=== PATIENT | male | born 1955 | race Hispanic/Latino ===

== ENCOUNTER 2016-09-10 00:07 | Emergency (ER) | payer BC ==
[2016-09-10 00:10] VITALS: BMI 32.1
[2016-09-10 00:18] VITALS: TEMP 98.8
--- NOTE | 2016-09-10 01:07 | ED PDOC ---
Arrival/HPI - General Chief Complaint: Trauma Time Seen by Provider: 09/10/16 00:55 Historian: Patient, Spouse ( ) - History of Present Illness Narrative History of Present Illness (Text): 09/10/16 00:59 Isaiah Taylor is a 61 year old male, with a history of seizures since December 2015, on Keppra, and hypertension, presents to the emergency department for evaluation following an unwitnessed seizure episode. Patient states he felt dizzy standing up after using the restroom and fell down to the ground. heard a thud and found the patient on the floor unconscious. He also sustained a small abrasion on tongue during the seizure. When EMS arrived patient was confused and in a post ictal state. This episode was patient's first episode since diagnosis in November, and has been compliant with medications. Denies fever , chills, headache, nausea, vomiting, diarrhea, urinary/bowel incontinence or any other complaints at this time. 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, pt currently taking abx - Pulmonary Hx Respiratory Disorders: No - Neurological Hx Neurological Disorder: No Hx Seizures: Yes - HEENT Hx HEENT Disorder: Yes (wears glasses) - Renal Hx Renal Disorder: No - Endocrine/Metabolic Hx Endocrine Disorders: No - Hematological/Oncological Hx Blood Disorders: No Hx Cancer: Yes (skin scalp/forehead/b/l side of face) Hx Chemotherapy: No (used topical cream) Hx Shingles: Yes (right side of face 2 yrs ago) Other/Comment: family can't recall what kind f skin ca he had - Integumentary Hx Dermatological Disorder: Yes (Skin CA) - Musculoskeletal/Rheumatological Hx Falls: No - Gastrointestinal Hx Gastrointestinal Disorders: No - Genitourinary/Gynecological Hx Prostate Problems: Yes (enlarge prostate) - Psychiatric Hx Psychophysiologic Disorder: No Hx Anxiety: No Hx Bipolar Disorder: No Hx Depression: No Hx Emotional Abuse: No Hx Hallucinations: No Hx Panic Disorder: No Hx Post Traumatic Stress Disorder: No Hx Psychosis: No Hx Physical Abuse: No Hx Schizophrenia: No Hx Sexual Abuse: No Hx Substance Use: No Other/Comment: 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, pt was in rehab x 2 the retreat in [place] 2 times, and attends aa meetings, pt has not had a drink in 9 months but 2 days ago went to store and bought 1 qt of vodka according to family bottle was almost empty and police brought him to er slept it off went home this morning had a seizure at home witnessed by - Past Surgical History Past Surgical History: No Previous - Surgical History Hx Appendectomy: Yes (10 yrs ago) Hx Cardiac Catheterization: Yes (12/20/14) Hx Orthopedic Surgery: Yes (lumbar laminectomy 25 yrs ago) Other/Comment: umbilical hernia repair, 15 yrs ago, r hydrocelectomy - Anesthesia Hx Anesthesia Reactions: No Hx Malignant Hyperthermia: No - Suicidal Assessment Feels Threatened In Home Enviroment: No Family/Social History - Physician Review Nursing Documentation Reviewed: Yes Family/Social History: No Known Family HX Smoking Status: Former Smoker Hx Alcohol Use: Yes (OCCASIONAL) Hx Substance Use: No Hx Substance Use Treatment: No Allergies/Home Meds Allergies/Adverse Reactions: Allergies No Known Allergies Allergy (Verified 12/13/15 11:44) Home Medications: Home Meds Medication Instructions Recorded Confirmed Nebivolol [Bystolic] 10 mg PO DAILY 03/17/13 04/14/16 Pantoprazole Sodium [Protonix] 40 mg PO DAILY 12/12/15 04/14/16 Sulfamethoxazole/Trimethoprim 2 tab PO BID 12/12/15 04/14/16 [Bactrim DS Tab] rifAMPin [Rifampin Cap] 1 cap PO BID 12/12/15 04/14/16 Amlodipine Besylate [Norvasc] 10 mg PO DAILY 12/13/15 04/14/16 Aspirin [Ecotrin] 81 mg PO DAILY 12/13/15 04/14/16 Review of Systems - Physician Review All systems were reviewed & negative as marked: Yes - Review of Systems Constitutional: Normal. absent: Fatigue, Fevers Respiratory: Normal. absent: SOB, Cough, Sputum Cardiovascular: Normal. absent: Chest Pain, Palpitations Neurological: Seizure. absent: Headache, Dizziness, Focal Weakness Psychiatric: Normal Physical Exam - Physical Exam Narrative Physical Exam (Text): Constitutional: No acute distress. Head: Normocephalic. Small abrasion to R cheek. Eyes: PERRL. EOMI. ENT: Moist mucous membranes. Abrasion on tip of tongue. Neck: Supple. No midline tenderness. Cardiovascular: Regular rate. Chest: No tenderness. Respiratory: Clear to auscultation bilaterally. GI: Soft. Nontender. Nondistended. Back: No CVA tenderness. Musculoskeletal: No tenderness or swelling of extremities. Skin: No rash. Neurologic: Alert, no focal deficit. Vital Signs Reviewed: Yes Vital Signs Temp Pulse Resp BP Pulse Ox 09/10/16 03:32 80 18 137/86 98 09/10/16 00:17 98.8 F 87 16 149/75 95 Temperature: Afebrile Blood Pressure: Normal Pulse: Regular Respiratory Rate: Normal Appearance: Positive for: Well-Appearing, Non-Toxic, Comfortable Pain Distress: None Mental Status: Positive for: Alert and Oriented X 3 Finger Stick Blood Glucose: 119 Medical Decision Making ED Course and Treatment: 09/10/16 01:09 Impression: A 61 year old male who presents to the emergency department following seizure episode. Plan: -- CT Head -- Labs -- Chest X-ray -- Urinalysis -- Reassess and disposition Progress Notes: 09/10/16 01:41 Chest X-ray interpreted by me: No acute infiltrates or consolidations. midline sternotomy wires. 09/10/16 01:48 CT Head results reviewed: FINDINGS: Brain: There is encephalomalacia in the right parietal lobe.Mild volume loss and white matter disease are identified. There is no acute infarct or edema. No hemorrhage. Ventricles: Unremarkable. No ventriculomegaly. Bones/joints: Unremarkable. No acute fracture. Soft tissues: Unremarkable. Sinuses: Unremarkable as visualized. No acute sinusitis. Mastoid air cells: Unremarkable as visualized. No mastoid effusion. IMPRESSION: No acute findings. Dictated and Authenticated by: Marcela Hargrove MD 09/10/16 02:58 Patient was offered admission to the hospital for further evaluation, but patient wants to sign out against medical advice. I advised the patient to stay the course of treatment, and informed him about the risks of leaving the hospital against medical advise. He verbalizes his understanding of the risks, and is adamant in his choice. Leaving Against Medical Advice (AMA): The patient is choosing to leave against medical advice. I have personally explained to the patient that choosing to do so may result in permanent bodily harm or . I have discussed at great length that without further evaluation and monitoring there may be unforeseen circumstances and/or deterioration causing permanent bodily harm or as a result of their choice. The patient is alert, oriented, and shows the mental capacity to make clear decisions regarding the patients health care at this time. The patient continues to wish to leave against medical advice. The patient has been advised that they should return to the emergency room immediately if they change their mind at any time, or if their condition begins to change or worsen in any way. - Lab Interpretations Lab Results: 09/10/16 01:05 09/10/16 01:05 Lab Results 09/10/16 01:05: Sodium 137, Potassium 4.2, Chloride 101, Carbon Dioxide 25, Anion Gap 15, BUN 28 H, Creatinine 1.4, Est GFR ( Amer) > 60, Est GFR ( Non-Af Amer) 52, Random Glucose 109, Calcium 9.4, Phosphorus 1.8 L, Magnesium 2.3 H, Total Bilirubin 0.5, AST 37, ALT 37, Alkaline Phosphatase 105, Total Creatine Kinase 598 H, CK-MB (CK-2) 5.5 H, CK-MB (CK-2) % 0.9 L, Total Protein 7.4, Albumin 4.4, Globulin 2.9, Albumin/Globulin Ratio 1.5 09/10/16 01:05: PT 10.6, INR 0.98, APTT 22.9 L 09/10/16 01:05: WBC 6.9 D, RBC 4.07, Hgb 12.7 L, Hct 36.3 L, MCV 89.2, MCH 31.2 , MCHC 35.0, RDW 13.0, Plt Count 157, MPV 10.1, Gran % 67.8, Lymph % (Auto) 21.5 L, [place] % (Auto) 5.4, Eos % (Auto) 4.7, Baso % (Auto) 0.6, Gran # 4.67, Lymph # 1.5, [place] # 0.4, Eos # 0.3, Baso # 0.04 - RAD Interpretation Radiology Orders: 09/10/16 00:56 HEAD W/O CONTRAST [CT] Stat CHEST PORTABLE [RAD] Stat - Scribe Statement The provider has reviewed the documentation as recorded by the [facility] Coto Provider Attestation: All medical record entries made by the Teodoraibnicky were at my direction and personally dictated by me. I have reviewed the chart and agree that the record accurately reflects my personal performance of the history, physical exam, medical decision making, and the department course for this patient. I have also personally directed, reviewed, and agree with the discharge instructions and disposition. Disposition/Present on Arrival - Present on Arrival Any Indicators Present on Arrival: No History of DVT/PE: No History of Uncontrolled Diabetes: No Urinary Catheter: No History of Decub. Ulcer: No History Surgical Site Infection Following: None - Disposition Have Diagnosis and Disposition been Completed?: Yes Diagnosis: Seizure Disposition: AGAINST MEDICAL ADVICE Disposition Time: 02:58 Patient Plan: Discharge Condition: STABLE Discharge Instructions (ExitCare): Epilepsy (ED), Against Medical Advice (ED)
[2016-09-10 01:13] LABS: ADD MANUAL DIFF? NO
[2016-09-10 01:15] LABS: BASO # 0.04 K/mm3 (0.0-2.0); BASO % 0.6 % (0.0-3.0); EOS # 0.3 (0.0-0.7); EOS % 4.7 % (1.5-5.0); GRAN # 4.67 (1.4-6.5); GRAN % 67.8 % (50.0-68.0); HEMATOCRIT 36.3 % (42.0-52.0); LYMPH # 1.5 (1.2-3.4); LYMPH % 21.5 % (22.0-35.0); MEAN CELL VOLUME 89.2 fL (80.0-105.0); MEAN CORPUSCULAR HEMOGLOBIN 31.2 pg (25.0-35.0); MEAN PLATELET VOLUME 10.1 fl (7.0-11.0); MONO # 0.4 (0.1-0.6); MONO % 5.4 % (1.0-6.0); PLATELET COUNT 157 10^3/uL (120.0-450.0); WHITE BLOOD COUNT 6.9 10^3/ul (4.5-11.0)
[2016-09-10 01:25] LABS: ALB/GLOB RATIO 1.5 (1.1-1.8); ALKALINE PHOSPHATASE 105 U/L (38-133); ALT/SGPT 37 U/L (7-56); AST/SGOT 37 U/L (15-59); BILIRUBIN,TOTAL 0.5 mg/dL (0.2-1.3); BLOOD UREA NITROGEN 28 mg/dL (7-21); CALCIUM 9.4 mg/dL (8.4-10.5); CARBON DIOXIDE 25 mmol/L (21-33); CHLORIDE 101 mmol/L (98-107); GFR AFRICAN-AMERICAN > 60; GLUCOSE,RANDOM 109 mg/dL (70-110); MAGNESIUM 2.3 mg/dL (1.7-2.2); PHOSPHOROUS 1.8 mg/dL (2.5-4.5); POTASSIUM 4.2 mmol/L (3.6-5.0); SODIUM 137 mmol/L (132-148); TOTAL PROTEIN 7.4 g/dL (5.8-8.3)
[2016-09-10 01:30] LABS: INR 0.98 (0.93-1.08); PARTIAL THROMBOPLASTIN TIME 22.9 Seconds (23.7-30.8)
[2016-09-10 03:33] VITALS: BP 137/86; PULSE 80; RESP 18; O2SAT 98
--- NOTE | 2016-09-10 07:25 | CT ---
PROCEDURE: CT HEAD WITHOUT CONTRAST. HISTORY: seizure, head trauma COMPARISON: 04/14/2016 TECHNIQUE: Axial computed tomography images were obtained through the head/brain without intravenous contrast. Radiation dose: Total exam DLP = 680.54 mGy-cm. This CT exam was performed using one or more of the following dose reduction techniques: Automated exposure control, adjustment of the mA and/or kV according to patient size, and/or use of iterative reconstruction technique. FINDINGS: HEMORRHAGE: No intracranial hemorrhage. BRAIN: No mass effect or edema. Focal encephalomalacia right high medial parietal lobe, unchanged. No evidence of acute infarct. VENTRICLES: Unremarkable. No hydrocephalus. CALVARIUM: Unremarkable. PARANASAL SINUSES: Unremarkable as visualized. No significant inflammatory changes. MASTOID AIR CELLS: Unremarkable as visualized. No inflammatory changes. OTHER FINDINGS: None. IMPRESSION: No intracranial hemorrhage. No intracranial mass or evidence of acute infarct. Old right high parietal encephalomalacia. Preliminary interpretation of this examination was reported by [employer] at 1:44 a.m. on 09/10/2016. There is concurrence of this report with the preliminary interpretation.
--- NOTE | 2016-09-10 08:50 | RAD ---
HISTORY: seizure COMPARISON: 04/14/2016 FINDINGS: LUNGS: No active pulmonary disease. PLEURA: No significant pleural effusion identified, no pneumothorax apparent. CARDIOVASCULAR: Normal. OSSEOUS STRUCTURES: No significant abnormalities. VISUALIZED UPPER ABDOMEN: Normal. OTHER FINDINGS: None. IMPRESSION: No active disease.
--- NOTE | 2016-09-10 11:54 | CARD ---
APPROVED REPORT EKG Measurement Heart [id number] <Conclusion> Normal sinus rhythm Possible Left atrial enlargement Right bundle branch block Possible inferior infarct, age undetermined STTW changes Leftward axis
== END 2016-09-10 03:37 | disposition left against medical advice (07) ==
LOC: ED 00:07
DX: R56.9 Unspecified convulsions (principal)

== ENCOUNTER 2017-04-19 00:16 | Observation (INO) | payer BC ==
--- NOTE | 2017-04-19 00:20 | ED PDOC ---
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 As per EMS< patient exhibited occasional twitching in arms and face but was alert and talking during those episodes. Patient without history of any recent head trauma or alcohol abuse, according to info obtained. On arrival to Emergency department, patient began experiencing twitching movements of extremities which progressed to full-blown tonic-clonic activity. Patient had an IV line immediately established, IV Ativan given, and patient placed non-rebreather mask. Time/Duration: Other (tonight) Symptom Onset: Sudden Symptom Course: Unchanged Activities at Onset: Light Context: Home Past Medical History - Provider Review Nursing Documentation Reviewed: Yes - Infectious Disease Hx of Infectious Diseases: None - Tetanus Immunization Tetanus Immunization: Unknown - Cardiac Hx Hypertension: Yes - Pulmonary Hx Respiratory Disorders: No - Neurological Hx Seizures: Yes - HEENT Hx HEENT Disorder: Yes (wears glasses) - Renal Hx Renal Disorder: No - Endocrine/Metabolic Hx Endocrine Disorders: No - Hematological/Oncological Hx Blood Disorders: No Hx Cancer: Yes (skin scalp/forehead/b/l side of face) Hx Chemotherapy: No (used topical cream) Hx Shingles: Yes (right side of face 2 yrs ago) Other/Comment: family can't recall what kind f skin ca he had - Integumentary Hx Dermatological Disorder: Yes (Skin CA) - Musculoskeletal/Rheumatological Hx Falls: No - Gastrointestinal Hx Gastrointestinal Disorders: No - Genitourinary/Gynecological Hx Prostate Problems: Yes (enlarge prostate) - Psychiatric Hx Psychophysiologic Disorder: No Hx Anxiety: No Hx Bipolar Disorder: No Hx Depression: No Hx Emotional Abuse: No Hx Hallucinations: No Hx Panic Disorder: No Hx Post Traumatic Stress Disorder: No Hx Psychosis: No Hx Physical Abuse: No Hx Schizophrenia: No Hx Sexual Abuse: No Hx Substance Use: No Other/Comment: 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, pt was in rehab x 2 the retreat in [place] 2 times, and attends aa meetings, pt has not had a drink in 9 months but 2 days ago went to store and bought 1 qt of vodka according to family bottle was almost empty and police brought him to er slept it off went home this morning had a seizure at home witnessed by - Past Surgical History Past Surgical History: No Previous - Surgical History Hx Appendectomy: Yes (10 yrs ago) Hx Cardiac Catheterization: Yes (12/20/14) Hx Orthopedic Surgery: Yes (lumbar laminectomy 25 yrs ago) Other/Comment: umbilical hernia repair, 15 yrs ago, r hydrocelectomy - Anesthesia Hx Anesthesia Reactions: No Hx Malignant Hyperthermia: No - Suicidal Assessment Feels Threatened In Home Enviroment: No Family/Social History - Physician Review Nursing Documentation Reviewed: Yes Family/Social History: Unknown Family HX Smoking Status: Former Smoker Hx Alcohol Use: Yes (OCCASIONAL) Hx Substance Use: No Hx Substance Use Treatment: No Allergies/Home Meds Allergies/Adverse Reactions: Allergies No Known Allergies Allergy (Verified 12/13/15 11:44) Home Medications: Home Meds Medication Instructions Recorded Confirmed RX: Amlodipine Besylate [Norvasc] 10 mg PO DAILY 12/13/15 04/19/17 Levetiracetam [Keppra] 2 tab PO BID 04/19/17 04/19/17 Nebivolol [Bystolic] 5 mg PO DAILY 04/19/17 04/19/17 Zonisamide [Zonegran] 100 mg PO HS 04/19/17 04/19/17 Review of Systems - Review of Systems Systems not reviewed;Unavailable: Altered Mental Status (s/p seizure) Neurological: Seizure Physical Exam Vital Signs Reviewed: Yes Vital Signs Temp Pulse Resp BP Pulse Ox 04/19/17 02:34 76 17 134/84 97 04/19/17 00:35 91 H 18 117/67 99 04/19/17 00:30 97.8 F 89 18 175/92 H 99 Temperature: Afebrile Blood Pressure: Hypertensive Pulse: Regular Respiratory Rate: Normal Pain Distress: None Mental Status: Positive for: other (Sedated post Ativan) - Systems Exam Head: Present: Atraumatic, Normocephalic Pupils: Present: PERRL Extroacular Muscles: Present: EOMI Conjunctiva: Present: Normal Ears: Present: Normal, NORMAL TM, Normal Canal. No: Erythema, TM Bulging Mouth: Present: Moist Mucous Membranes Pharnyx: Present: Normal. No: ERYTHEMA, EXUDATE, TONSILS ENLARGED, Peritonsilar Swelling, Uvular Deviation, Muffled/Hoarse Voice, Strider, Soft Palate/Uvular Edema Nose (External): Present: Atraumatic Nose (Internal): Present: Normal Inspection Neck: Present: Normal Range of Motion. No: Meningeal Signs, MIDLINE TENDERNESS , Paraspinal Tenderness Respiratory/Chest: Present: Clear to Auscultation, Good Air Exchange. No: Respiratory Distress, Accessory Muscle Use Cardiovascular: Present: Regular Rate and Rhythm, Normal S1, S2. No: Murmurs Abdomen: Present: Normal Bowel Sounds. No: Tenderness, Distention, Peritoneal Signs Upper Extremity: Present: Normal Inspection. No: Cyanosis, Edema Lower Extremity: Present: Normal Inspection. No: Edema Neurological: Present: CN II-XII Intact, Motor Func Grossly Intact, Normal Sensory Function, Other (Sedated, no focal neurological deficits) Skin: Present: Warm, Dry, Normal Color. No: Rashes Medical Decision Making ED Course and Treatment: 04/19/17 00:20 Impression: 62 year old male brought in for recurrent seizures today. Plan: -- CT Head w/o contrast -- EKG -- Labs, cardiac enzymes, alcohol level -- Ativan -- Reassess and disposition Prior Visits: Notes and results from previous visits were reviewed. On 09/10/16, pt was seen in the Emergency department s/p unwitnessed seizure and dizziness. Pt left against medical advice. Progress Notes: Reviewed EKG, NSR at 88 bpm. Incomplete RBBB. Non-specific ST/T wave changes. 04/19/17 02:52 Case discussed with medical apparatus model maker numerical control operator, who is aware and agrees with plan. 04/19/17 02:[address] Webb, covering for Dr. Mustafa, who is aware and agrees with plan. Pt will Telemetry observation for seizures. Requests Dr. Arellano on consult. 04/19/17 03:[address] Head, shows: Brain: Mild atrophy. No intracranial hemorrhage. No mass. Mild encephalomalacia within right parietal region. No definite edema. Ventricles: No hydrocephalus. Bones/joints: No acute fracture. Soft tissues: Unremarkable. Sinuses: No acute sinusitis. Mastoid air cells: Minimal fluid within RIGHT mastoid. Orbits: Unremarkable as visualized. IMPRESSION: 1. No definite acute intracranial abnormality. 2. Incidental/non-acute findings are described above. - Lab Interpretations Lab Results: 04/19/17 00:23 12 00:23 Lab Results 04/19/17 00:23: WBC 7.6, RBC 4.37, Hgb 13.9 L, Hct 40.7 L, MCV 93.1, MCH 31.8, MCHC 34.2, RDW 13.2, Plt Count 171, MPV 10.9 12 00:23: Alcohol, Quantitative < 10 04/19/17 00:23: Sodium 141, Potassium 4.7, Chloride 107, Carbon Dioxide 19 L, Anion Gap 20, BUN 21, Creatinine 1.2, Est GFR ( Amer) > 60, Est GFR (Non- Af Amer) > 60, Random Glucose 121 H, Calcium 9.6, Phosphorus 3.1, Magnesium 2.1 , Total Bilirubin 0.4, AST 37, ALT 35, Alkaline Phosphatase 75, Lactate Dehydrogenase 257 L, Total Creatine Kinase 254 H, CK-MB (CK-2) 4.2 H, CK-MB (CK- 2) % Cancelled, Troponin I < 0.01, Total Protein 7.6, Albumin 4.9 H, Globulin 2.7, Albumin/Globulin Ratio 1.8 04/19/17 00:23: PT 10.6, INR 0.97, APTT 26.9 I have reviewed the lab results: Yes - RAD Interpretation Radiology Orders: 04/19/17 00:37 HEAD W/O CONTRAST [CT] Stat Mold Presser: Radiologist - EKG Interpretation Interpreted by ED Physician: Yes Type: 12 lead EKG - Medication Orders Current Medication Orders: Discontinued Medications Lorazepam (Ativan) 2 mg IVP ONCE ONE Stop: 04/19/17 00:21 Last Admin: 04/19/17 00:20 Dose: 2 mg IVP Administration Document 04/19/17 00:20 YP (Rec: 04/19/17 00:40 [id number] [id number]) Charges for Administration # of IVP Administrations 1 - Scribe Statement The provider has reviewed the documentation as recorded by the Brook Abrams Provider Scribe Attestation: All medical record entries made by the Scribe were at my direction and personally dictated by me. I have reviewed the chart and agree that the record accurately reflects my personal performance of the history, physical exam, medical decision making, and the department course for this patient. I have also personally directed, reviewed, and agree with the discharge instructions and disposition. Disposition/Present on Arrival - Present on Arrival Any Indicators Present on Arrival: No History of DVT/PE: No History of Uncontrolled Diabetes: No Urinary Catheter: No History of Decub. Ulcer: No History Surgical Site Infection Following: None - Disposition Have Diagnosis and Disposition been Completed?: Yes Diagnosis: Breakthrough seizure, Seizure disorder Disposition: HOSPITALIZED Disposition Time: 03:02 Patient Plan: Observation Patient Problems: Current Active Problems Problem Status Onset Breakthrough seizure Acute Seizure disorder Acute Condition: STABLE
[2017-04-19 00:27] VITALS: BMI 32.5
[2017-04-19 00:57] LABS: HEMATOCRIT 40.7 % (42.0-52.0); INR 0.97 (0.93-1.08); MEAN CELL VOLUME 93.1 fl (80.0-105.0); MEAN CORPUSCULAR HEMOGLOBIN 31.8 pg (25.0-35.0); MEAN CORPUSCULAR HGB CONC 34.2 g/dl (31.0-37.0); MEAN PLATELET VOLUME 10.9 fl (7.0-11.0); PARTIAL THROMBOPLASTIN TIME 26.9 Seconds (25.1-36.5); RED CELL DISTRIBUTION WIDTH 13.2 % (11.5-14.5); WHITE BLOOD COUNT 7.6 10^3/ul (4.5-11.0)
[2017-04-19 01:02] LABS: ALKALINE PHOSPHATASE 75 U/L (38-126); ALT/SGPT 35 U/L (7-56); AST/SGOT 37 U/L (17-59); BILIRUBIN,TOTAL 0.4 mg/dL (0.2-1.3); BLOOD UREA NITROGEN 21 mg/dL (7-21); CALCIUM 9.6 mg/dL (8.4-10.5); CARBON DIOXIDE 19 mmol/L (21-33); CHLORIDE 107 mmol/L (98-107); GFR AFRICAN-AMERICAN > 60; GLUCOSE,RANDOM 121 mg/dL (70-110); POTASSIUM 4.7 mmol/L (3.6-5.0); SODIUM 141 mmol/L (132-148); TOTAL PROTEIN 7.6 g/dL (5.8-8.3)
[2017-04-19 01:14] LABS: TROPONIN I < 0.01 ng/mL
[2017-04-19 01:15] LABS: ALB/GLOB RATIO 1.8 (1.1-1.8)
--- NOTE | 2017-04-19 03:13 | CT ---
EXAM: CT Head Without Intravenous Contrast CLINICAL HISTORY: 62 years old, male; Signs and symptoms; Syncope and collapse; Additional info: Seizure TECHNIQUE: Axial computed tomography images of the head/brain without intravenous contrast. All CT scans at this facility use one or more dose reduction techniques, viz.: automated exposure control; ma/kV adjustment per patient size (including targeted exams where dose is matched to indication; i.e. head); or iterative reconstruction technique. COMPARISON: CT - HEAD W/O CONTRAST 2016-09-10 01:24 FINDINGS: Brain: Mild atrophy. No intracranial hemorrhage. No mass. Mild encephalomalacia within right parietal region. No definite edema. Ventricles: No hydrocephalus. Bones/joints: No acute fracture. Soft tissues: Unremarkable. Sinuses: No acute sinusitis. Mastoid air cells: Minimal fluid within RIGHT mastoid. Orbits: Unremarkable as visualized. IMPRESSION: 1. No definite acute intracranial abnormality. 2. Incidental/non-acute findings are described above.
[2017-04-19 03:18] LABS: MAGNESIUM 2.1 mg/dL (1.7-2.2); PHOSPHOROUS 3.1 mg/dL (2.5-4.5)
[2017-04-19] MEDS ORDERED: Sodium Chloride 0.9% 1,000 ML IV SCH (04:15)
--- NOTE | 2017-04-19 04:36 | CP.PCM.HP ---
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 Patient has history of a seizure disorder for which he takes multiple antiseizure medications. is at beside, contributing to history. She reports that patient had collapsed to the ground while getting up from a chair, landing on all four extremities. He proceeded to crawl around with difficulty standing up, and was acting strange according to his . En route to the ER, EMS noted twitching movements of LUE and left face. In the ER, this progressed to generalized tonic clonic seizure which abated with Ativan 2mg IV. Patient denies any chest pain, palpitations, SOB, abdominal pain, nausea, vomiting, constipation, dysuria, hematuria, fever, chills. denies any recent mood/ memory/sleep changes. He does endorse a new antiseizure medication started about 6 weeks ago, after having a reaction to the medication he was on previously. He also reports 2 episodes of diarrhea 2 days ago. He denies trauma , recent alcohol use, recent drug use. Remainder of 12 point ROS negative. PMH: As above PSH: Aortic porcine valve replacement 08/2015, appendectomy, umbilical hernia repair, lumbar laminectomy and fusion Soc: Denies tobacco. Prior history of alcohol abuse, last drink was December 2015. Denies illicits. All: NKDA PMD: [place] Neuro: Anselmi Present on Admission - Present on Admission Any Indicators Present on Admission: No Past Patient History - Infectious Disease Hx of Infectious Diseases: None - Tetanus Immunizations Tetanus Immunization: Unknown - Past Social History Smoking Status: Former Smoker - CARDIAC Hx Hypertension: Yes - PULMONARY Hx Respiratory Disorders: No - NEUROLOGICAL Hx Seizures: Yes - HEENT Hx HEENT Problems: Yes (wears glasses) - RENAL Hx Chronic Kidney Disease: No - ENDOCRINE/METABOLIC Hx Endocrine Disorders: No - HEMATOLOGICAL/ONCOLOGICAL Hx Blood Disorders: No Hx Cancer: Yes (skin scalp/forehead/b/l side of face) Hx Chemotherapy: No (used topical cream) Hx Shingles: Yes (right side of face 2 yrs ago) Other/Comment: family can't recall what kind f skin ca he had - INTEGUMENTARY Hx Dermatological Problems: Yes (Skin CA) - MUSCULOSKELETAL/RHEUMATOLOGICAL Hx Falls: No - GASTROINTESTINAL Hx Gastrointestinal Disorders: No - GENITOURINARY/GYNECOLOGICAL Hx Prostate Problems: Yes (enlarge prostate) - PSYCHIATRIC Hx Psychophysiologic Disorder: No Hx Anxiety: No Hx Bipolar Disorder: No Hx Depression: No Hx Emotional Abuse: No Hx Hallucinations: No Hx Panic Symptoms: No Hx Post Traumatic Stress Disorder: No Hx Psychosis: No Hx Physical Abuse: No Hx Schizophrenia: No Hx Sexual Abuse: No Hx Substance Use: No Other/Comment: 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, pt was in rehab x 2 the retreat [place] 2 times, and attends aa meetings, pt has not had a drink in 9 months but 2 days ago went to store and bought 1 qt of vodka according to family bottle was almost empty and police brought him to er slept it off went home this morning had a seizure at home witnessed by - SURGICAL HISTORY Hx Appendectomy: Yes (10 yrs ago) Hx Cardiac Catheterization: Yes (12/20/14) Hx Orthopedic Surgery: Yes (lumbar laminectomy 25 yrs ago) Other/Comment: umbilical hernia repair, 15 yrs ago, r hydrocelectomy - ANESTHESIA Hx Anesthesia Reactions: No Hx Malignant Hyperthermia: No Meds Allergies/Adverse Reactions: Allergies Allergy/AdvReac Type Severity Reaction Status Date / Time No Known Allergies Allergy Verified 12/13/15 11:44 Physical Exam - Constitutional Appears: Non-toxic, No Acute Distress - Head Exam Head Exam: ATRAUMATIC, NORMOCEPHALIC - Eye Exam Eye Exam: EOMI, Normal appearance, PERRL. absent: Nystagmus - ENT Exam ENT Exam: Mucous Membranes Moist - Neck Exam Neck exam: Positive for: Full Rom, Normal Inspection - Respiratory Exam Respiratory Exam: Clear to Auscultation Bilateral, NORMAL BREATHING PATTERN - Cardiovascular Exam Cardiovascular Exam: RRR, +S1, +S2 - GI/Abdominal Exam GI & Abdominal Exam: Normal Bowel Sounds, Soft. absent: Firm, Guarding, Rigid, Tenderness - Extremities Exam Extremities exam: Positive for: normal capillary refill, pedal pulses present. Negative for: calf tenderness, pedal edema - Neurological Exam Neurological exam: Alert, CN II-XII Intact, Oriented x3 Additional comments: 5/5 strength in b/l UE 5/5 Strength in RLE - 5/5 strength in LLE, though slightly weaker than right, or apparently inattentive to that extremity until prompted multiple times - Psychiatric Exam Psychiatric exam: Normal Affect, Normal Mood - Skin Skin Exam: Dry, Intact, Normal Color, Warm Results - Vital Signs Recent Vital Signs: Last Vital Signs Temp 97.8 F 04/19/17 00:30 Pulse 80 04/19/17 03:42 Resp 14 04/19/17 03:42 BP 135/72 04/19/17 03:42 Pulse Ox 98 04/19/17 03:42 - Labs Result Diagrams: 04/19/17 00:23 04/19/17 00:23 Assessment & Plan - Assessment and Plan (Free Text) Assessment: 62 yo M with PMH of MSSA endocarditis, 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 Patient had witnessed generalized tonic clonic seizure in the ER which abated with Ativan 2mg IV. Plan Seizures - Patient has history of seizure disorder and prior history of alcohol abuse; reports compliance with his medications and no recent alcohol consumption - CT head w/o contrast negative for any acute intracranial abnormalities - Resume home antiseizure medications - Start Ativan 2mg IV Q2H PRN for seizure like activity - Ordered UA and CXR to r/o infectious etiology provoking seizure; Utox to r/o illicit drug use - Ordered keppra level, TSH - Seizure and fall precautions - Requested neuro consult; appreciate recs. Patient sees Dr. Arellano on outpatient basis h/o Alcohol abuse - Patient denies any recent alcohol consumption, and serum alcohol level low - Start CIWA protocol - Start PO thiamine - Continue to monitor for withdrawal symptoms Elevated CPK - Patient predisposed to rhabdomyolysis in setting of seizure and elevated CPK - Start IVF hydration h/o HTN - Resume home meds GI/DVT Ppx - Pepcid and SCDs Case discussed and reviewed with attending
[2017-04-19 06:26] VITALS: O2SAT 96
[2017-04-19 07:48] LABS: BASO # 0.01 K/mm3 (0.0-2.0); BASO % 0.1 % (0.0-3.0); EOS % 0.4 % (1.5-5.0); GRAN # 5.73 (1.4-6.5); GRAN % 74.1 % (50.0-68.0); HEMATOCRIT 37.3 % (42.0-52.0); LYMPH # 1.5 (1.2-3.4); LYMPH % 18.8 % (22.0-35.0); MEAN CELL VOLUME 90.8 fl (80.0-105.0); MEAN CORPUSCULAR HEMOGLOBIN 31.1 pg (25.0-35.0); MEAN CORPUSCULAR HGB CONC 34.3 g/dl (31.0-37.0); MEAN PLATELET VOLUME 10.1 fl (7.0-11.0); MONO # 0.5 (0.1-0.6); MONO % 6.6 % (1.0-6.0); RED CELL DISTRIBUTION WIDTH 13.2 % (11.5-14.5); WHITE BLOOD COUNT 7.7 10^3/ul (4.5-11.0)
[2017-04-19 08:00] LABS: ALB/GLOB RATIO 1.8 (1.1-1.8); ALKALINE PHOSPHATASE 76 U/L (38-126); ALT/SGPT 34 U/L (7-56); AST/SGOT 33 U/L (17-59); BILIRUBIN,TOTAL 0.6 mg/dL (0.2-1.3); BLOOD UREA NITROGEN 19 mg/dL (7-21); CARBON DIOXIDE 22 mmol/L (21-33); CHLORIDE 107 mmol/L (98-107); GFR AFRICAN-AMERICAN > 60; GLUCOSE,RANDOM 109 mg/dL (70-110); MAGNESIUM 2.1 mg/dL (1.7-2.2); PHOSPHOROUS 3.3 mg/dL (2.5-4.5); POTASSIUM 3.9 mmol/L (3.6-5.0); SODIUM 137 mmol/L (132-148); TOTAL PROTEIN 6.5 g/dL (5.8-8.3)
[2017-04-19] MEDS ORDERED: NEBIVOLOL 5 MG PO SCH (10:00)
[2017-04-19 11:38] LABS: PH,URINE 6.5 (4.7-8.0); URINE BILIRUBIN NEGATIVE (NEGATIVE); URINE BLOOD NEGATIVE (NEGATIVE); URINE GLUCOSE (UA) NEGATIVE (NEGATIVE); URINE KETONE NEGATIVE (NEGATIVE); URINE LEUKOCYTE ESTERASE NEGATIVE Leu/uL (NEGATIVE); URINE PROTEIN NEGATIVE mg/dL (<30 mg/dL); URINE UROBILINOGEN 0.2 E.U./dL (<1 E.U./dL)
[2017-04-19 11:43] LABS: URINE APPEARANCE CLEAR (CLEAR); URINE COLOR YELLOW (YELLOW)
--- NOTE | 2017-04-19 11:57 | CARD ---
APPROVED REPORT EKG Measurement Heart [id number] <Conclusion> Normal sinus rhythm RBBB Possible IMI, old NSSTW changes Prolonged QTc No change
[2017-04-19] MEDS ORDERED: Gadodiamide 287 MG/ML VIAL (20ML) IV ONE (13:10)
[2017-04-19 13:21] VITALS: BP 134/90; RESP 19; TEMP 98.1
--- NOTE | 2017-04-19 14:11 | MRI ---
PROCEDURE: MRI BRAIN WITH AND WITHOUT CONTRAST HISTORY: seizure disorder COMPARISON: Comparison is made with previous MRI dated 12/14/2015 TECHNIQUE: Multiplanar, multisequence MR images of the brain were obtained with and without intravenous contrast enhancement. Brain mL of Omniscan was injected intravenously. FINDINGS: HEMORRHAGE: No evidence of acute hemorrhage. Focal susceptibility artifact is again noted at the right parietal lobe suggestive of chronic hemorrhage. DWI: No evidence of an acute or early subacute infarction. BRAIN PARENCHYMA: Focal encephalomalacia at the right parietal lobe associated with susceptibility artifact again noted suggestive of hemorrhagic infarction. No evidence of new mass lesion in the brain. No atrophy or chronic microvascular ischemic changes. ENHANCEMENT: No abnormal intracranial enhancement. VENTRICLES: Unremarkable. No hydrocephalus. CRANIUM: Unremarkable. ORBITS: Grossly unremarkable. PARANASAL SINUSES/MASTOIDS: Mild effusion noted at the right mastoid. VASCULAR SYSTEM: Skull base flow voids intact. OTHER FINDINGS: None . IMPRESSION: No evidence of acute pathology. No evidence of enhancing mass lesion mass effect or midline shift. Re- demonstrated is chronic hemorrhage/ focal hemorrhagic infarction at the right parietal lobe. No significant interval change noted since the previous study.
[2017-04-19 15:16] VITALS: PULSE 65
[2017-04-19] MEDS ORDERED: Influenza Vaccine 60 mcg/0.5 mL SYR (4YR UP) IM ONE (15:36)
[2017-04-19] MEDS ORDERED: Pneumococcal 23-Valent Vaccine IM ONE (15:36)
--- NOTE | 2017-04-19 17:16 | RAD ---
HISTORY: COMPARISON: 09/10/2016 TECHNIQUE: Chest PA and lateral FINDINGS: LINES AND TUBES: The lungs are hyperinflated and there is peribronchial thickening with chronic changes in both lungs. No focal consolidation. LUNG AND PLEURA: The lungs are well inflated and clear. HEART AND MEDIASTINUM: The heart is not enlarged. Status post median sternotomy. The hilar and mediastinal contours are within normal limits. SKELETAL STRUCTURES: The bony structures are within normal limits for the patient's age. VISUALIZED UPPER ABDOMEN: Normal. OTHER FINDINGS: None. IMPRESSION: No active pulmonary disease. COPD.
--- NOTE | 2017-04-19 17:23 | CP.PCM.DIS ---
Provider - Provider Date of Admission: 04/19/17 02:58 Attending physician: Graeme Mustafa MD Time Spent in preparation of Discharge (in minutes): 40 Diagnosis - Discharge Diagnosis (1) Breakthrough seizure Status: Acute (2) Seizure disorder Status: Chronic (3) Hypertension Status: Chronic (4) Endocarditis due to methicillin susceptible Staphylococcus aureus (MSSA) Status: Resolved (5) Endocarditis Status: Resolved Hospital Course - Lab Results Lab Results: Most Recent Lab Values WBC 7.7 10^3/ul (4.5-11.0) 04/19/17 07:30 RBC 4.11 10^6/uL (3.5-6.1) 04/19/17 07:30 Hgb 12.8 g/dL (14.0-18.0) L 04/19/17 07:30 Hct 37.3 % (42.0-52.0) L 04/19/17 07:30 MCV 90.8 fl (80.0-105.0) 04/19/17 07:30 MCH 31.1 pg (25.0-35.0) 04/19/17 07:30 MCHC 34.3 g/dl (31.0-37.0) 04/19/17 07:30 RDW 13.2 % (11.5-14.5) 04/19/17 07:30 Plt Count 156 10^3/uL (120.0-450.0) 04/19/17 07:30 MPV 10.1 fl (7.0-11.0) 04/19/17 07:30 Gran % 74.1 % (50.0-68.0) H 04/19/17 07:30 Lymph % (Auto) 18.8 % (22.0-35.0) L 04/19/17 07:30 [place] % (Auto) 6.6 % (1.0-6.0) H 04/19/17 07:30 Eos % (Auto) 0.4 % (1.5-5.0) L 04/19/17 07:30 Baso % (Auto) 0.1 % (0.0-3.0) 04/19/17 07:30 Gran # 5.73 (1.4-6.5) 04/19/17 07:30 Lymph # 1.5 (1.2-3.4) 04/19/17 07:30 [place] # 0.5 (0.1-0.6) 04/19/17 07:30 Eos # 0.0 (0.0-0.7) 04/19/17 07:30 Baso # 0.01 K/mm3 (0.0-2.0) 04/19/17 07:30 PT 10.6 SECONDS (9.4-12.5) 04/19/17 00:23 INR 0.97 (0.93-1.08) 04/19/17 00:23 APTT 26.9 Seconds (25.1-36.5) 04/19/17 00:23 Sodium 137 mmol/L (132-148) 04/19/17 07:30 Potassium 3.9 mmol/L (3.6-5.0) 04/19/17 07:30 Chloride 107 mmol/L (98-107) 04/19/17 07:30 Carbon Dioxide 22 mmol/L (21-33) 04/19/17 07:30 Anion Gap 11 (10-20) 04/19/17 07:30 BUN 19 mg/dL (7-21) 04/19/17 07:30 Creatinine 1.1 mg/dl (0.8-1.5) 04/19/17 07:30 Est GFR ( Amer) > 60 04/19/17 07:30 Est GFR (Non-Af Amer) > 60 04/19/17 07:30 Random Glucose 109 mg/dL (70-110) 04/19/17 07:30 Calcium 9.0 mg/dL (8.4-10.5) 04/19/17 07:30 Phosphorus 3.3 mg/dL (2.5-4.5) 04/19/17 07:30 Magnesium 2.1 mg/dL (1.7-2.2) 04/19/17 07:30 Total Bilirubin 0.6 mg/dL (0.2-1.3) 04/19/17 07:30 AST 33 U/L (17-59) 04/19/17 07:30 ALT 34 U/L (7-56) 04/19/17 07:30 Alkaline Phosphatase 76 U/L (38-126) 04/19/17 07:30 Lactate Dehydrogenase 257 U/L (333-699) L 04/19/17 00:23 Total Creatine Kinase 254 U/L (35-230) H 04/19/17 00:23 CK-MB (CK-2) 4.2 ng/mL (0.0-3.6) H 04/19/17 00:23 CK-MB (CK-2) % Cancelled 04/19/17 00:23 Troponin I < 0.01 ng/mL 04/19/17 00:23 Total Protein 6.5 g/dL (5.8-8.3) 04/19/17 07:30 Albumin 4.1 g/dL (3.0-4.8) 04/19/17 07:30 Globulin 2.4 gm/dL 04/19/17 07:30 Albumin/Globulin Ratio 1.8 (1.1-1.8) 04/19/17 07:30 TSH 3rd Generation 1.01 mIU/mL (0.46-4.68) 04/19/17 07:30 Urine Color Yellow (YELLOW) 04/19/17 11:26 Urine Appearance Clear (CLEAR) 04/19/17 11:26 Urine pH 6.5 (4.7-8.0) 04/19/17 11:26 Ur Specific [place] 1.015 (1.005-1.035) 04/19/17 11:26 Urine Protein Negative mg/dL (<30 mg/dL) 04/19/17 11:26 Urine Glucose (UA) Negative mg/dL (NEGATIVE) 04/19/17 11:26 Urine Ketones Negative mg/dL (NEGATIVE) 04/19/17 11:26 Urine Blood Negative (NEGATIVE) 04/19/17 11:26 Urine Nitrate Negative (NEGATIVE) 04/19/17 11:26 Urine Bilirubin Negative (NEGATIVE) 04/19/17 11:26 Urine Urobilinogen 0.2 E.U./dL (<1 E.U./dL) 04/19/17 11:26 Ur Leukocyte Esterase Negative [place]/uL (NEGATIVE) 04/19/17 11:26 Alcohol, Quantitative < 10 mg/dL (0-10) 04/19/17 00:23 - Hospital Course Hospital Course: Mr. 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 The patient stated that he feels when he's about to get a seizure by "hearing his heart beat." The patient had these feelings as he was walking home and at home, collapsed, had difficulty getting back up and was acting strange, according to the . In the ED, the pt experienced a generalized tonic clonic seizure which abated with Ativan 2mg IV. The patient's seizures started December 2015, several months after he had AVR 2/2 endocarditis and an AV abscess. The patient stated there was some family trouble and he drank a lot of alcohol, which triggered the first seizure. The patient follows with Dr. Arellano as an outpatient, and he has been adjusting his medications. The patient was currently on Keppra 1500mg BID and Zongeran 200mg HS. The patient was transferred to telemetry for monitoring. Chart was reviewed for prior visits. EKG was reviewed and noted no acute events. Labs were unremarkable. Dr. Arellano was consulted and contacted for further recs. The patient did not have any seizure-like activity while on the medical floors and was alert and oriented and able to communicate fully. CT Head showed mild encephalomalacia within right parietal region but no acute abnormalities. MRI Brain re-demonstrated chronic hemorrhage/ focal hemorrhagic infarction at the right parietal lobe (no significant interval change) and no evidence of acute pathology, enhancing mass lesion mass effect or midline shift. The patient does NOT currently drive due to his seizure hx, and it was reinforced and encouraged to continue not driving as it is not safe for him or for other drivers. HTN was also managed by starting his medications. The patient offered no acute complaints and was medically optimized for discharge. Per Dr. Arellano, the patient is discharged on Keppra and Zongeran and that he will follow up the next day with him in the office, and will consider EEG. All instructions were explained to patient, and to his at bedside, and questions were answered. The patient understands and has no further questions. - Date & Time of H&P Date of H&P: 04/19/17 Time of H&P: 04:18 Discharge Exam - Head Exam Head Exam: ATRAUMATIC, NORMOCEPHALIC - Eye Exam Eye Exam: EOMI, Normal appearance, PERRL Pupil Exam: NORMAL ACCOMODATION - ENT Exam ENT Exam: Mucous Membranes Moist - Neck Exam Neck exam: Normal Inspection - Respiratory Exam Respiratory Exam: Clear to PA & Lateral, NORMAL BREATHING PATTERN. absent: Rales, Rhonchi, Wheezes - Cardiovascular Exam Cardiovascular Exam: RRR, +S1, +S2 Additional comments: diffuse murmur due to AVR - GI/Abdominal Exam GI & Abdominal Exam: Normal Bowel Sounds, Soft. absent: Distended, Tenderness - Extremities Exam Extremities exam: full ROM, normal inspection, pedal pulses present - Back Exam Back exam: NORMAL INSPECTION. absent: tenderness - Neurological Exam Neurological exam: Alert, CN II-XII Intact, Oriented x3 Additional comments: No motor sensory deficits Uvula midline Tongue protrudes midline fine motor movements (finger to nose and heel to martinez) both intact 5/5 muscle strength x4 extremities - Psychiatric Exam Psychiatric exam: Anxious, Normal Mood - Skin Skin Exam: Normal Color Discharge Plan - Follow Up Plan Condition: STABLE Disposition: HOME/ ROUTINE Additional Instructions: 1. Please continue taking Keppra 1500mg TWICE DAILY and Zinosamide 200mg DAILY 2. Please continue your other home medications 3. Please follow up with Dr. Arellano in the office tomorrow 4. Please avoid driving as it is unsafe given your history of seizures 5. If you experience seizure-like symptoms, weakness or slurring of speech, please return to ER for evaluation Referrals: Edwin Arellano MD [Staff Provider] - Graeme Mustafa MD [Family Provider] -
== END 2017-04-19 16:32 | disposition home or self-care (01) ==
LOC: ED 00:16 → ERH 02:58 → 2RSO 04:32
PROVIDERS: ADMIT Internal Medicine; ATTEND Internal Medicine
DX: G40.409 Other generalized epilepsy and epileptic syndromes, not intractable, without status epilepticus (principal); G89.4 Chronic pain syndrome; G93.89 Other specified disorders of brain; I10 Essential (primary) hypertension; I38 Endocarditis, valve unspecified; Z85.828 Personal history of other malignant neoplasm of skin; Z86.61 Personal history of infections of the central nervous system; Z87.891 Personal history of nicotine dependence; Z90.49 Acquired absence of other specified parts of digestive tract; Z95.2 Presence of prosthetic heart valve; A49.01 Methicillin susceptible Staphylococcus aureus infection, unspecified site; Z23 Encounter for immunization
CPT/HCPCS: 70450; 70553; 71020; 80053; 80299; 81003; 82550; 82553; 83615; 83735; 84100; 84443; 84484; 85025; 85027; 85610; 85730; 90674; 90732; 93005; 96374; 99285; A9579; G0008; G0009; G0378; G0480; J2060; J7040

== ENCOUNTER 2018-03-22 18:59 | Observation (INO) | payer BC ==
[2018-03-22 19:17] LABS: BASO # 0.03 K/mm3 (0.0-2.0); BASO % 0.4 % (0.0-3.0); EOS # 0.3 (0.0-0.7); EOS % 3.6 % (1.5-5.0); GRAN # 3.3 (1.4-6.5); HEMOGLOBIN 15.2 g/dL (14.0-18.0); LYMPH # 3.4 (1.2-3.4); LYMPH % 45.8 % (22.0-35.0); MEAN CELL VOLUME 93.6 fl (80.0-105.0); MEAN CORPUSCULAR HEMOGLOBIN 31.5 pg (25.0-35.0); MEAN CORPUSCULAR HGB CONC 33.6 g/dl (31.0-37.0); MEAN PLATELET VOLUME 10.6 fl (7.0-11.0); MONO # 0.4 (0.1-0.6); MONO % 5.2 % (1.0-6.0); RBC 4.83 10^6/uL (3.5-6.1); RED CELL DISTRIBUTION WIDTH 12.5 % (11.5-14.5); WHITE BLOOD COUNT 7.3 10^3/uL (4.5-11.0)
[2018-03-22 19:51] LABS: CALCIUM 9.4 mg/dL (8.4-10.5)
[2018-03-22] MEDS ORDERED: Sodium Chloride 0.9% 1,000 ML IV STA (20:10)
--- NOTE | 2018-03-22 20:22 | ED PDOC ---
Arrival/HPI - General Historian: Patient - History of Present Illness Narrative History of Present Illness (Text): 03/22/18 20:23 63yo male with pmhx of hypertension. CAD s/p stents, alcohol abuse, seizure who was bib EMS for having a witnessed seizure by the family members. PEr the daughter by the bedside patient had a tonic-clonic seizure this night. No tongue biting and no urinary incontinence. Patient appear confused on arrival to the ED. He however became more AAO x3 in ED and denied any somatic complaint. the family notes that his last seizure was April 2017. States his Keppra dose was increased then and Zonegram was added to his regimen. <Dae Cesar - Last Filed: 03/23/18 01:22> <Graeme Henry - Last Filed: 03/24/18 11:30> - General Chief Complaint: Seizure Past Medical History - Provider Review Nursing Documentation Reviewed: Yes - Infectious Disease Hx of Infectious Diseases: None - Tetanus Immunization Tetanus Immunization: Unknown - Cardiac Hx Hypertension: Yes - Pulmonary Hx Respiratory Disorders: No - Neurological Hx Seizures: Yes - HEENT Hx HEENT Disorder: Yes (wears glasses) - Renal Hx Renal Disorder: No - Endocrine/Metabolic Hx Endocrine Disorders: No - Hematological/Oncological Hx Blood Disorders: No Hx Cancer: Yes (skin scalp/forehead/b/l side of face) Hx Chemotherapy: No (used topical cream) Hx Shingles: Yes (right side of face 2 yrs ago) Other/Comment: family can't recall what kind f skin ca he had - Integumentary Hx Dermatological Disorder: Yes (Skin CA) - Musculoskeletal/Rheumatological Hx Falls: No - Gastrointestinal Hx Gastrointestinal Disorders: No - Genitourinary/Gynecological Hx Prostate Problems: Yes (enlarge prostate) - Psychiatric Hx Psychophysiologic Disorder: No Hx Anxiety: No Hx Bipolar Disorder: No Hx Depression: No Hx Emotional Abuse: No Hx Hallucinations: No Hx Panic Disorder: No Hx Post Traumatic Stress Disorder: No Hx Psychosis: No Hx Physical Abuse: No Hx Schizophrenia: No Hx Sexual Abuse: No Hx Substance Use: No Other/Comment: 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, pt was in rehab x 2 the retreat in [place] 2 times, and attends aa meetings, pt has not had a drink in 9 months but 2 days ago went to store and bought 1 qt of vodka according to family bottle was almost empty and police brought him to er slept it off went home this morning had a seizure at home witnessed by - Past Surgical History Past Surgical History: No Previous - Surgical History Hx Appendectomy: Yes (10 yrs ago) Hx Cardiac Catheterization: Yes (12/20/14) Hx Orthopedic Surgery: Yes (lumbar laminectomy 25 yrs ago) Other/Comment: umbilical hernia repair, 15 yrs ago, r hydrocelectomy - Anesthesia Hx Anesthesia Reactions: No Hx Malignant Hyperthermia: No - Suicidal Assessment Feels Threatened In Home Enviroment: No <Dae Cesar A - Last Filed: 03/23/18 01:22> Family/Social History - Physician Review Nursing Documentation Reviewed: Yes Family/Social History: Unknown Family HX Smoking Status: Former Smoker Hx Alcohol Use: Yes (OCCASIONAL) Hx Substance Use: No Hx Substance Use Treatment: No <Dae Cesar A - Last Filed: 03/23/18 01:22> Allergies/Home Meds <Dae Cesar - Last Filed: 03/23/18 01:22> <Graeme Henry - Last Filed: 03/24/18 11:30> Allergies/Adverse Reactions: Allergies No Known Allergies Allergy (Verified 03/22/18 19:01) Home Medications: Home Meds Medication Instructions Recorded Confirmed RX: Amlodipine Besylate [Norvasc] 10 mg PO DAILY 12/13/15 03/22/18 RX: Levetiracetam [Keppra] 2 tab PO BID 04/19/17 03/22/18 RX: Nebivolol [Bystolic] 5 mg PO DAILY 04/19/17 03/22/18 Review of Systems - Physician Review All systems were reviewed & negative as marked: Yes - Review of Systems Constitutional: Normal Eyes: Normal ENT: Normal Respiratory: Normal Cardiovascular: Normal Gastrointestinal: Normal Genitourinary Male: Normal Musculoskeletal: Normal Skin: Normal Neurological: Seizure Endocrine: Normal Hemo/Lymphatic: Normal Psychiatric: Normal <Dae Cesar A - Last Filed: 03/23/18 01:22> Physical Exam Vital Signs Reviewed: Yes Vital Signs Temp Pulse Resp BP Pulse Ox 03/22/18 18:59 98.1 F 59 L 18 143/88 99 Temperature: Afebrile Blood Pressure: Normal Pulse: Regular Respiratory Rate: Normal Appearance: Positive for: Well-Appearing, Non-Toxic, Comfortable Pain Distress: None Mental Status: Positive for: Confused Finger Stick Blood Glucose: 104 - Systems Exam Head: Present: Atraumatic, Normocephalic Pupils: Present: PERRL Extroacular Muscles: Present: EOMI Conjunctiva: Present: Normal Mouth: Present: Moist Mucous Membranes Neck: Present: Normal Range of Motion Respiratory/Chest: Present: Clear to Auscultation, Good Air Exchange. No: Respiratory Distress, Accessory Muscle Use Cardiovascular: Present: Regular Rate and Rhythm, Normal S1, S2. No: Murmurs Abdomen: No: Tenderness, Distention, Peritoneal Signs Back: Present: Normal Inspection Upper Extremity: Present: Normal Inspection. No: Cyanosis, Edema Lower Extremity: Present: Normal Inspection. No: Edema Neurological: Present: GCS=15, CN II-XII Intact, Speech Normal, Motor Func Grossly Intact Skin: Present: Warm, Dry, Normal Color. No: Rashes Psychiatric: Present: Alert, Oriented x 3, Normal Insight, Normal Concentration <Diru,Happiness A - Last Filed: 03/23/18 01:22> Vital Signs Temp Pulse Resp BP Pulse Ox 03/22/18 21:28 83 18 133/63 96 03/22/18 18:59 98.1 F 59 L 18 143/88 99 <Graeme Henry - Last Filed: 03/24/18 11:30> Medical Decision Making ED Course and Treatment: 03/23/18 01:22 63yo male bib EMS for recurrent seizure. He was postictal on arrival but became more AAO x3 in ED. Labs Head CT Keppra level 1L NS While in ED pt had a witnessed seizure and ativan was given. Lab was reviewed and 1.7Cr was noted. He was acidotic likely secondary to the seizure. EKG _ NSR @ 76bpm. Incomplete RBBB; Prolonged QT Head CT - No acute finding He was admitted for further OBS Case DW Dr. Fitzgerald and pt was admitted Result and plan was DW the pt and he agreed - Lab Interpretations Lab Results: 03/22/18 19:12 03/22/18 19:12 Lab Results 03/22/18 19:12: Alcohol, Quantitative < 10 03/22/18 19:12: Sodium 140, Potassium 4.4, Chloride 105, Carbon Dioxide 13 L, Anion Gap 27 H, BUN 19, Creatinine 1.7 H, Est GFR ( Amer) 50, Est GFR (Non-Af Amer) 41, Random Glucose 101, Calcium 9.4, Magnesium 2.3 H, Total Bilirubin 0.5, AST 31, ALT 27, Alkaline Phosphatase 66, Total Protein 7.5, Albumin 5.0 H, Globulin 2.5, Albumin/Globulin Ratio 2.0 H 03/22/18 19:12: WBC 7.3, RBC 4.83, Hgb 15.2 D, Hct 45.2, MCV 93.6, MCH 31.5, MCHC 33.6, RDW 12.5, Plt Count 181, MPV 10.6, Gran % 45.0 L, Lymph % (Auto) 45.8 H, [place] % (Auto) 5.2, Eos % (Auto) 3.6, Baso % (Auto) 0.4, Gran # 3.30, Lymph # (Auto) 3.4, [place] # (Auto) 0.4, Eos # (Auto) 0.3, Baso # (Auto) 0.03 - RAD Interpretation Narrative RAD Interpretations (Text): CT Head: BRAIN Encephalomalacia involving right parietal lobe, compatible with an old infarct. VENTRICLES: No hydrocephalus. ORBITS: The orbits are unremarkable. SINUSES AND MASTOIDS: The paranasal sinuses and mastoid air cells are clear. BONES: No fracture. SOFT TISSUES: Unremarkable. IMPRESSION: Encephalomalacia involving right parietal lobe, compatible with an old infarct. Electronically signed on Mar 22, 2018 8:43:35 PM EST by: Davian Martinez M.D., EMELINA Certified By ABR & CBCCT Fellowship Trained MRI and CT Specialist Radiology Orders: 03/22/18 19:08 HEAD W/O CONTRAST [CT] Stat [employer] Sash And Frame Carpenter: Radiologist - Medication Orders Current Medication Orders: Sodium Chloride (Sodium Chloride 0.9%) 1,000 mls @ 999 mls/hr IV .Q1H1M STA Stop: 03/22/18 21:10 <Dae Cesar A - Last Filed: 03/23/18 01:22> - Lab Interpretations Lab Results: 03/22/18 19:12 03/22/18 19:12 Lab Results 03/22/18 19:12: Alcohol, Quantitative < 10 03/22/18 19:12: Sodium 140, Potassium 4.4, Chloride 105, Carbon Dioxide 13 L, Anion Gap 27 H, BUN 19, Creatinine 1.7 H, Est GFR ( Amer) 50, Est GFR (Non-Af Amer) 41, Random Glucose 101, Calcium 9.4, Magnesium 2.3 H, Total Bilirubin 0.5, AST 31, ALT 27, Alkaline Phosphatase 66, Total Protein 7.5, Albumin 5.0 H, Globulin 2.5, Albumin/Globulin Ratio 2.0 H 03/22/18 19:12: WBC 7.3, RBC 4.83, Hgb 15.2 D, Hct 45.2, MCV 93.6, MCH 31.5, MCHC 33.6, RDW 12.5, Plt Count 181, MPV 10.6, Gran % 45.0 L, Lymph % (Auto) 45.8 H, [place] % (Auto) 5.2, Eos % (Auto) 3.6, Baso % (Auto) 0.4, Gran # 3.30, Lymph # (Auto) 3.4, [place] # (Auto) 0.4, Eos # (Auto) 0.3, Baso # (Auto) 0.03 - RAD Interpretation Radiology Orders: 03/22/18 19:08 HEAD W/O CONTRAST [CT] Stat - Medication Orders Current Medication Orders: Discontinued Medications Acetaminophen (Tylenol 325mg Tab) 650 mg PO Q6H PRN PRN Reason: Pain, moderate (4-7) Last Admin: 03/23/18 18:46 Dose: 650 mg [facility] Pain/Vitals Document 03/23/18 18:46 ID (Rec: 03/23/18 18:47 ID [facility] [place]-[employer]) Pain Reassessment Is This A Pain ReAssessment? No Sleep Is patient sleeping during reassessment? No Presence of Pain Presence of Pain Yes Pain Scale Used Protocol: PSCALES Pain Scale Used Numeric Location Pain Location Body Site Back Description Intermittent Scale Used Numeric Pain Behavior Moaning Irritability Facial Grimacing Aggravating Factors Changing Position Exercise/Activity Alleviating Factors Medication Amlodipine Besylate (Norvasc) 10 mg PO DAILY [facility] Last Admin: 03/23/18 12:13 Dose: 10 mg MAR Blood Pressure Document 03/23/18 12:13 ID (Rec: 03/23/18 12:14 ID [facility] [place]) Blood Pressure Blood Pressure (100/60-150/90) 111/78 Aspirin (Ecotrin) 81 mg PO DAILY [facility] Last Admin: 03/23/18 12:13 Dose: 81 mg Famotidine (Pepcid) 20 mg PO DAILY [facility] Last Admin: 03/23/18 12:14 Dose: 20 mg Sodium Chloride (Sodium Chloride 0.9%) 1,000 mls @ 999 mls/hr IV .Q1H1M STA Stop: 03/22/18 21:10 Last Admin: 03/22/18 20:20 Dose: 999 mls/hr eMAR Start Stop Document 03/22/18 20:20 AD (Rec: 03/22/18 20:20 AD [id number]) Intravenous Solution Start Date 03/22/18 Start Time 20:20 Sodium Chloride (Sodium Chloride 0.9%) 1,000 mls @ 100 mls/hr IV .Q10H [facility] Last Admin: 03/23/18 15:08 Dose: 100 mls/hr eMAR Start Stop Document 03/23/18 15:08 ID (Rec: 03/23/18 15:09 ID [facility]-[employer]) Intravenous Solution Start Date 03/23/18 Start Time 07:00 Levetiracetam (Keppra) 1,500 mg PO BID STA Stop: 03/22/18 21:31 Last Admin: 03/22/18 21:41 Dose: 1,500 mg Levetiracetam (Keppra) 1,500 mg PO BID [facility] Last Admin: 03/23/18 18:47 Dose: 1,500 mg Lorazepam (Ativan) 2 mg IVP ONCE ONE; Protocol Stop: 03/22/18 21:12 Last Admin: 03/22/18 21:12 Dose: 2 mg IVP Administration Document 03/22/18 21:12 AD (Rec: 03/22/18 21:27 AD [id number]) Charges for Administration # of IVP Administrations 1 Lorazepam (Ativan) 2 mg IVP Q4H PRN; Protocol PRN Reason: Seizure activity Metoprolol Succinate (Toprol Xl) 50 mg PO DAILY [facility] Last Admin: 03/23/18 12:24 Dose: 50 mg MAR Pulse and Blood Pressure Document 03/23/18 12:24 ID (Rec: 03/23/18 12:25 ID [facility]-[employer]) Pulse Pulse Rate (60-90) 78 Blood Pressure Blood Pressure (100/60-150/90) 111/74 Zonisamide (Zonegran) 200 mg PO HS [place] Last Admin: 03/22/18 22:09 Dose: 200 mg <Graeme Henry - Last Filed: 03/24/18 11:30> - PA / SCIENTIST IMMUNOLOGY / Resident Statement MD/DO has reviewed & agrees with the documentation as recorded. <Graeme Henry - Last Filed: 03/24/18 11:30> Disposition/Present on Arrival - Present on Arrival Any Indicators Present on Arrival: No History of DVT/PE: No History of Uncontrolled Diabetes: No Urinary Catheter: No History of Decub. Ulcer: No History Surgical Site Infection Following: None - Disposition Have Diagnosis and Disposition been Completed?: Yes Disposition Time: 20:50 Patient Plan: Admission <Dae Cesar - Last Filed: 03/23/18 01:22> <Graeme Henry - Last Filed: 03/24/18 11:30> - Disposition Diagnosis: Seizure disorder, Renal insufficiency, Acidosis Disposition: HOSPITALIZED Condition: FAIR
--- NOTE | 2018-03-22 21:36 | CP.PCM.HP ---
History of Present Illness - History of Present Illness History of Present Illness: Gloria Steward PGY1 H&P for Dr. Carito Fitzgerald Pt is a 63yo M with PMH HTN, CAD s/p stents, etoh use, and seizures who presents to ED s/p witnessed seizure at home. As per ED note, pt family witnessed 1 tonic clonic seizure at home. Pt reports feeling normal before the seizure, sitting and talking with his , when his limbs began to jerk involuntarily. Pt denies loss of consciousness, head trauma, urinary or bowel incontinence, or tongue biting. He is not sure how long the seizure lasted. Pt reports taking his medications as prescribed, denies missing a dose. Pt denies any recent illness, travel, or sick contacts. He reports eating his normal diet and drinking plenty of water at home. Pt denies dizziness, shortness of breath, headache, chest pain, abdominal pain, nausea, vomiting, diarrhea, dysuria. In the ED, pt had another witnessed seizure. As per RN, seizure was tonic clonic and lasted for 2 minutes. Pt was given 2mg ativan IV and seizure remitted. SxH: back surgery, open heart surgery FamH: dad: , etoh and CAD SocH: denies tobacco use. reports h/o etoh and recreational drug use, not currently using Allergies: NKDA Meds: zonegram 200mg HS, bystolic 5mg daily, keppra 1500mg BID, norvasc 10mg daily PMD: Moon Neurologist: Adan Present on Admission - Present on Admission Any Indicators Present on Admission: No Review of Systems - Review of Systems Review of Systems: as per HPI Past Patient History - Infectious Disease Hx of Infectious Diseases: None - Tetanus Immunizations Tetanus Immunization: Unknown - Past Social History Smoking Status: Former Smoker - CARDIAC Hx Hypertension: Yes - PULMONARY Hx Respiratory Disorders: No - NEUROLOGICAL Hx Seizures: Yes - HEENT Hx HEENT Problems: Yes (wears glasses) - RENAL Hx Chronic Kidney Disease: No - ENDOCRINE/METABOLIC Hx Endocrine Disorders: No - HEMATOLOGICAL/ONCOLOGICAL Hx Blood Disorders: No Hx Cancer: Yes (skin scalp/forehead/b/l side of face) Hx Chemotherapy: No (used topical cream) Hx Shingles: Yes (right side of face 2 yrs ago) Other/Comment: family can't recall what kind f skin ca he had - INTEGUMENTARY Hx Dermatological Problems: Yes (Skin CA) - MUSCULOSKELETAL/RHEUMATOLOGICAL Hx Falls: No - GASTROINTESTINAL Hx Gastrointestinal Disorders: No - GENITOURINARY/GYNECOLOGICAL Hx Prostate Problems: Yes (enlarge prostate) - PSYCHIATRIC Hx Psychophysiologic Disorder: No Hx Anxiety: No Hx Bipolar Disorder: No Hx Depression: No Hx Emotional Abuse: No Hx Hallucinations: No Hx Panic Symptoms: No Hx Post Traumatic Stress Disorder: No Hx Psychosis: No Hx Physical Abuse: No Hx Schizophrenia: No Hx Sexual Abuse: No Hx Substance Use: No Other/Comment: 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, pt was in rehab x 2 the retreat in [place] 2 times, and attends aa meetings, pt has not had a drink in 9 months but 2 days ago went to store and bought 1 qt of vodka according to family bottle was almost empty and police brought him to er slept it off went home this morning had a seizure at home witnessed by - SURGICAL HISTORY Hx Appendectomy: Yes (10 yrs ago) Hx Cardiac Catheterization: Yes (12/20/14) Hx Orthopedic Surgery: Yes (lumbar laminectomy 25 yrs ago) Other/Comment: umbilical hernia repair, 15 yrs ago, r hydrocelectomy - ANESTHESIA Hx Anesthesia Reactions: No Hx Malignant Hyperthermia: No Meds Allergies/Adverse Reactions: Allergies Allergy/AdvReac Type Severity Reaction Status Date / Time No Known Allergies Allergy Verified 03/22/18 19:01 Physical Exam - Constitutional Appears: Well, No Acute Distress - Head Exam Head Exam: ATRAUMATIC, NORMOCEPHALIC - Eye Exam Eye Exam: EOMI, Normal appearance, PERRL Pupil Exam: NORMAL ACCOMODATION - ENT Exam ENT Exam: Mucous Membranes Moist - Neck Exam Neck exam: Positive for: Normal Inspection - Respiratory Exam Respiratory Exam: Clear to Auscultation Bilateral, NORMAL BREATHING PATTERN. absent: Decreased Breath Sounds, Rales, Rhonchi, Wheezes - Cardiovascular Exam Cardiovascular Exam: REGULAR RHYTHM, +S1, +S2. absent: Gallop, Rubs, Systolic Murmur - GI/Abdominal Exam GI & Abdominal Exam: Normal Bowel Sounds, Soft. absent: Distended, Tenderness - Extremities Exam Extremities exam: Positive for: normal inspection. Negative for: pedal edema - Back Exam Back exam: NORMAL INSPECTION - Neurological Exam Neurological exam: Alert, CN II-XII Intact, Oriented x3, Reflexes Normal - Expanded Neurological Exam Expanded Sensory exam: Lower Extremity 2 Point Discrimination: Normal, Upper Extremity 2 Point Discrimination: Normal Neuro motor strength exam: Left Upper Extremity: 5, Right Upper Extremity: 5, Left Lower Extremity: 5, Right Lower Extremity: 5 - Psychiatric Exam Psychiatric exam: Normal Affect, Normal Mood Results - Vital Signs Recent Vital Signs: Last Vital Signs Temp 98.1 F 03/22/18 18:59 Pulse 83 03/22/18 21:28 Resp 18 03/22/18 21:28 BP 133/63 03/22/18 21:28 Pulse Ox 96 03/22/18 21:28 - Labs Result Diagrams: 03/22/18 19:12 03/22/18 19:12 Labs: Laboratory Results - last 24 hr 03/22/18 03/22/18 03/22/18 19:12 19:12 19:12 WBC 7.3 RBC 4.83 Hgb 15.2 D Hct 45.2 MCV 93.6 MCH 31.5 MCHC 33.6 RDW 12.5 Plt Count 181 MPV 10.6 Gran % 45.0 L Lymph % (Auto) 45.8 H [place] % (Auto) 5.2 Eos % (Auto) 3.6 Baso % (Auto) 0.4 Gran # 3.30 Lymph # (Auto) 3.4 [place] # (Auto) 0.4 Eos # (Auto) 0.3 Baso # (Auto) 0.03 Sodium 140 Potassium 4.4 Chloride 105 Carbon Dioxide 13 L Anion Gap 27 H BUN 19 Creatinine 1.7 H Est GFR ( Amer) 50 Est GFR (Non-Af Amer) 41 Random Glucose 101 Calcium 9.4 Magnesium 2.3 H Total Bilirubin 0.5 AST 31 ALT 27 Alkaline Phosphatase 66 Total Protein 7.5 Albumin 5.0 H Globulin 2.5 Albumin/Globulin Ratio 2.0 H Alcohol, Quantitative < 10 Assessment & Plan - Assessment and Plan (Free Text) Assessment: 63yo M with PMH HTN, CAD s/p stents, etoh use, and seizures who presents to ED s/p witnessed seizure at home and in ED, admitted for further evaluation and treatment. Plan: Seizures - breakthrough, pt reports medication compliance - tonic clonic, generalized - CT head: encephalomalacia in R parietal lobe, suggestive of old infarct - received 2mg ativan IVP in ED - continue home keppra 1500mg po BID - continue home zonegran 200mg po HS - seizure precautions - fall precautions - neurochecks q4h - f/u UDS - f/u keppra level - Neurology consulted, Dr. Arellano - f/u recs HTN - continue home norvasc 10mg po daily - home bystolic 5mg daily --> start metoprolol succinate 50mg po daily HALI - BUN/Cr 19/1.7 - Baseline Cr 1.0 - NS 1000ml @100cc/hr - f/u AM CMP PPX DVT: SCDs GI: pepcid 20mg daily HHD Case reviewed with Dr. Kasey Fitzgerald
[2018-03-22] MEDS: Sodium Chloride 0.9% 1,000 ML IV SCH (22:09)
[2018-03-22 22:55] VITALS: RESP 20
[2018-03-23 01:07] VITALS: BMI 31.8
[2018-03-23 07:25] LABS: BASO # 0.01 K/mm3 (0.0-2.0); BASO % 0.2 % (0.0-3.0); EOS # 0.2 (0.0-0.7); EOS % 3.2 % (1.5-5.0); GRAN # 3.58 (1.4-6.5); GRAN % 59.9 % (50.0-68.0); LYMPH # 1.7 (1.2-3.4); LYMPH % 27.8 % (22.0-35.0); MEAN CELL VOLUME 91.1 fl (80.0-105.0); MEAN CORPUSCULAR HEMOGLOBIN 31.1 pg (25.0-35.0); MEAN CORPUSCULAR HGB CONC 34.1 g/dl (31.0-37.0); MEAN PLATELET VOLUME 10.7 fl (7.0-11.0); MONO # 0.5 (0.1-0.6); MONO % 8.9 % (1.0-6.0); RBC 4.18 10^6/uL (3.5-6.1); RED CELL DISTRIBUTION WIDTH 12.6 % (11.5-14.5)
[2018-03-23 07:59] LABS: ALB/GLOB RATIO 1.5 (1.1-1.8); ALBUMIN 3.7 g/dL (3.0-4.8); ALT/SGPT 33 U/L (7-56); AST/SGOT 29 U/L (17-59); BLOOD UREA NITROGEN 18 mg/dL (7-21); CALCIUM 8.6 mg/dL (8.4-10.5); GFR NON-AFRICAN AMERICAN 52
[2018-03-23 08:51] VITALS: PULSE 78; TEMP 97.7; O2SAT 97
--- NOTE | 2018-03-23 08:58 | CT ---
Date of service: 03/22/2018 PROCEDURE: CT HEAD WITHOUT CONTRAST. HISTORY: seizure COMPARISON: 04/19/2017 TECHNIQUE: Axial computed tomography images were obtained through the head/brain without intravenous contrast. Radiation dose: Total exam DLP = 931.74 mGy-cm. This CT exam was performed using one or more of the following dose reduction techniques: Automated exposure control, adjustment of the mA and/or kV according to patient size, and/or use of iterative reconstruction technique. FINDINGS: HEMORRHAGE: No intracranial hemorrhage. BRAIN: No mass effect or edema. There is a chronic area of encephalomalacia in the right parietal lobe. This is unchanged. There are no acute intracranial findings VENTRICLES: Unremarkable. No hydrocephalus. CALVARIUM: Unremarkable. PARANASAL SINUSES: Unremarkable as visualized. No significant inflammatory changes. MASTOID AIR CELLS: Unremarkable as visualized. No inflammatory changes. OTHER FINDINGS: The report concurs with the preliminary [facility] report IMPRESSION: No acute intracranial findings
--- NOTE | 2018-03-23 09:04 | RAD ---
Date of service: 03/22/2018 HISTORY: admission COMPARISON: 04/19/2017 FINDINGS: LUNGS: No active pulmonary disease. PLEURA: No significant pleural effusion identified, no pneumothorax apparent. CARDIOVASCULAR: No aortic atherosclerotic calcification present. Mild cardiomegaly. Moderate aortic tortuosity in dilatation. No pulmonary vascular congestion. OSSEOUS STRUCTURES: Sternal wires VISUALIZED UPPER ABDOMEN: Normal. OTHER FINDINGS: None. IMPRESSION: No active disease.
[2018-03-23] MEDS ORDERED: Metoprolol Succinate 50 mg XL Tab PO SCH (10:00)
--- NOTE | 2018-03-23 11:09 | CP.PCM.PN ---
<Jenaro Zuleta - Last Filed: 03/23/18 11:06> Subjective - Date & Time of Evaluation Date of Evaluation: 03/23/18 Time of Evaluation: 11:06 - Subjective Subjective: Internal Medicine Progress Note (Hospitalist's Service): Patient seen and assessed at bedside. No acute events overnight. Patient denies any complaints but reports that he is upset that he won't be able to cook for his family on Thanksgiving. He denies any complaints at this time including fevers, chills, headache, chest pain, SOB, abdominal pain, N/V/D/C, changes in urine output, skin changes or any numbness/tingling/weakness of any extremity. Objective - Vital Signs/Intake and Output Vital Signs (last 24 hours): Temp Pulse Resp BP Pulse Ox 97.7 F 78 20 117/74 97 03/23/18 06:00 03/23/18 06:00 03/23/18 06:00 03/23/18 06:00 03/23/18 06:00 Intake and Output: 03/23/18 03/23/18 06:59 18:59 Intake Total 900 Balance 900 - Medications Medications: Current Medications Acetaminophen (Tylenol 325mg Tab) 650 mg PO Q6H PRN PRN Reason: Pain, moderate (4-7) Last Admin: 03/22/18 23:07 Dose: 650 mg Amlodipine Besylate (Norvasc) 10 mg PO DAILY [facility] Aspirin (Ecotrin) 81 mg PO DAILY [facility] Famotidine (Pepcid) 20 mg PO DAILY [facility] Lorazepam (Ativan) 2 mg IVP Q4H PRN; Protocol PRN Reason: Seizure activity Metoprolol Succinate (Toprol Xl) 50 mg PO DAILY [facility] Zonisamide (Zonegran) 200 mg PO HS [facility] Last Admin: 03/22/18 22:09 Dose: 200 mg - Labs Labs: 03/23/18 07:00 03/23/18 07:00 - Constitutional Appears: Non-toxic, No Acute Distress - Head Exam Head Exam: ATRAUMATIC, NORMOCEPHALIC - Eye Exam Eye Exam: EOMI, Normal appearance, PERRL Pupil Exam: NORMAL ACCOMODATION - ENT Exam ENT Exam: Mucous Membranes Moist - Neck Exam Neck Exam: Full ROM, Normal Inspection. absent: Lymphadenopathy, Meningismus, Tenderness, Thyromegaly - Respiratory Exam Respiratory Exam: Clear to Ausculation Bilateral, NORMAL BREATHING PATTERN. absent: Accessory Muscle Use, Rales, Rhonchi, Wheezes, Respiratory Distress - Cardiovascular Exam Cardiovascular Exam: REGULAR RHYTHM, RRR, +S1, +S2 - GI/Abdominal Exam GI & Abdominal Exam: Soft, Normal Bowel Sounds. absent: Tenderness - Extremities Exam Extremities Exam: absent: Calf Tenderness, Pedal Edema - Back Exam Back Exam: NORMAL INSPECTION - Neurological Exam Neurological Exam: Alert, Awake, Oriented x3 - Psychiatric Exam Psychiatric exam: Normal Affect, Normal Mood - Skin Skin Exam: Dry, Intact, Normal Color, Warm Assessment and Plan - Assessment and Plan (Free Text) Assessment: 63 year old male with a past medical history significant for unspecified seizure disorder, HTN, CAD s/p stents, and previous history of alcohol abuse who pr esented with breakthrough seizures on two anti seizure medications. Plan: 1. Breakthrough Seizures -CT Head showed encephalomalacia in R parietal lobe that is suggestive of old infarct but no acute ICA's -EKG showed normal sinus rhythm with prolonged QTc -Chest X-Ray showed mild cardiomegaly with no active disease -Continue home Keppra 1500mg PO BID -Continue home Zonegran 200mg PO HS -Continue Ativan 2mg Q4H PRN for seizure activity -Continue fall and seizure precautions -Continue Neurochecks Q4 -UDS and Keppra level pending -Neurology consulted, all recommendations appreciated 2. History of HTN -Continue home Norvasc 10mg PO daily 3. History of CAD -Continue home ASA 81mg -Continue Toprol XL in replacement of home Bystolic 4. HALI -Resolved -Discontinue NS at 100mls/hr -Continue to monitor with daily CMP's GI Prophlaxis: Pepcid DVT Prophylaxis: SCD's Diet: Heart Healthy Code Status: Full Code Patient seen and case discussed with attending, Dr. Hemalatha Mraks. Jenaro Zuleta PGY2 <Hemalatha Marks R - Last Filed: 03/25/18 10:41> Objective - Vital Signs/Intake and Output Vital Signs (last 24 hours): Temp Pulse Resp BP Pulse Ox 97.7 F 78 20 111/74 97 03/23/18 06:00 03/23/18 12:24 03/23/18 06:00 03/23/18 12:24 03/23/18 06:00 - Labs Labs: 03/23/18 07:00 03/23/18 07:00 Attending/Attestation - Attestation I have personally seen and examined this patient.: Yes I have fully participated in the care of the patient.: Yes I have reviewed all pertinent clinical information, including history, physical exam and plan: Yes Notes (Text): Patient seen and examined by me with resident at 9:40 AM on 03/23/18. Case including HPI, physical exam, and assessment and plan discussed with resident. Agree with above with following additions/corrections. Patient is a 63-year-old male with past medical history significant for hypertension, coronary artery disease status post placement, alcohol abuse, and seizures that presented to the emergency room with a witnessed seizure at home. Patient states he is feeling much better today. He denies any confusion. No seizure activity since being in the hospital. No headaches or dizziness. No change in vision. No lightheadedness. No chest pain or shortness of breath. No nausea, vomiting, or abdominal pain. No fevers or chills. No dysuria. No diarrhea or constipation. Physical exam: General: Awake and alert lying in bed in no acute distress HEENT: Normocephalic, atraumatic. Extraocular muscles intact, pupils equal and reactive, no scleral icterus. Oropharynx is pink and moist. Neck is supple. Cardiovascular: Regular rhythm. Normal S1 and S2. No murmurs, rubs, or gallops appreciated Pulmonary: Normal respiratory effort. No rhonchi, rales, or wheezing denia reciated. Gastrointestinal: Soft, nondistended. Nontender. Positive bowel sounds all 4 quadrants. No guarding. Musculoskeletal: Moves all extremities. No calf tenderness. No CVA tenderness. No edema appreciated Central nervous system: AAO x3, CN 2-12 grossly intact. Dermatologic: Skin warm and dry. Assessment and plan: Patient is a 63-year-old male with past medical history significant for hypertension, coronary artery disease status post placement, alcohol abuse, and seizures that presented to the emergency room with a witnessed seizure at home. 1. Breakthrough seizure. Seizure disorder. No seizures in hospital. Patient seen by neurology. Per neurologist patient to follow-up with his neurologist Dr. Arellano. Patient to continue current doses of Keppra and Zonegran at home. Patient will need his Keppra levels followed up on. Patient was advised to make sure to have them check with his neurologist. Patient cleared for discharge by neurology. Head CT per neurologist showed no intracranial findings. 2. Hypertension. Continue home norvasc. Patient on bysotlic at home. Placed on Toprol XL here. 3. HALI. Resolved. Patient encouraged to increase PO intake of water. 4. CAD. Continue ASA. Continue toprol XL. No acute issues. No chest pain 5. Patient is a ful code. Case was discussed in detail with patient regarding current diagnosis and treatment plan. All questions answered.
[2018-03-23 12:25] VITALS: BP 111/74
--- NOTE | 2018-03-23 13:02 | CP.PCM.PCO ---
Physician Communication Note - Physician Communication Note Physician Communication Note: At baseline, no seizures. Will check Keppra level and continue current dose Assessment/Plan - Assessment/Plan Assessment (Free Text): The patient has a history of stroke and epilepsy. He is currently on a good dose of Keppra. Will check levels and he can follow up with Dr. Arellano for further management. He is currently at baseline and stable. If medically cleared, the patient can be discharged. - Problems Patient Problems: Problem List (Active/Current) Problem Status Onset Code Acidosis Acute E87.2 Renal insufficiency Acute N28.9 Seizure disorder Chronic G40.909
[2018-03-23] MEDS: Sodium Chloride 0.9% 1,000 ML IV SCH (15:08)
--- NOTE | 2018-03-23 17:09 | CP.PCM.DIS ---
<Ana Maria Griffin - Last Filed: 03/23/18 17:09> Provider - Provider Date of Admission: 03/22/18 20:48 Attending physician: Hemalatha Marks DO Primary care physician: Dr. Mustafa Consults: Neurology: Dr. Vasquez Time Spent in preparation of Discharge (in minutes): 45 Hospital Course - Lab Results Lab Results: Most Recent Lab Values WBC 6.0 10^3/uL (4.5-11.0) 03/23/18 07:00 RBC 4.18 10^6/uL (3.5-6.1) 03/23/18 07:00 Hgb 13.0 g/dL (14.0-18.0) L D 03/23/18 07:00 Hct 38.1 % (42.0-52.0) L 03/23/18 07:00 MCV 91.1 fl (80.0-105.0) 03/23/18 07:00 MCH 31.1 pg (25.0-35.0) 03/23/18 07:00 MCHC 34.1 g/dl (31.0-37.0) 03/23/18 07:00 RDW 12.6 % (11.5-14.5) 03/23/18 07:00 Plt Count 149 10^3/uL (120.0-450.0) 03/23/18 07:00 MPV 10.7 fl (7.0-11.0) 03/23/18 07:00 Gran % 59.9 % (50.0-68.0) 03/23/18 07:00 Lymph % (Auto) 27.8 % (22.0-35.0) 03/23/18 07:00 Overton % (Auto) 8.9 % (1.0-6.0) H 03/23/18 07:00 Eos % (Auto) 3.2 % (1.5-5.0) 03/23/18 07:00 Baso % (Auto) 0.2 % (0.0-3.0) 03/23/18 07:00 Gran # 3.58 (1.4-6.5) 03/23/18 07:00 Lymph # (Auto) 1.7 (1.2-3.4) 03/23/18 07:00 Overton # (Auto) 0.5 (0.1-0.6) 03/23/18 07:00 Eos # (Auto) 0.2 (0.0-0.7) 03/23/18 07:00 Baso # (Auto) 0.01 K/mm3 (0.0-2.0) 03/23/18 07:00 Sodium 140 mmol/L (132-148) 03/23/18 07:00 Potassium 4.1 mmol/L (3.6-5.0) 03/23/18 07:00 Chloride 112 mmol/L (98-107) H 03/23/18 07:00 Carbon Dioxide 22 mmol/L (21-33) 03/23/18 07:00 Anion Gap 10 (10-20) 03/23/18 07:00 BUN 18 mg/dL (7-21) 03/23/18 07:00 Creatinine 1.4 mg/dl (0.8-1.5) 03/23/18 07:00 Est GFR ( Amer) > 60 03/23/18 07:00 Est GFR (Non-Af Amer) 52 03/23/18 07:00 Random Glucose 100 mg/dL (70-110) 03/23/18 07:00 Calcium 8.6 mg/dL (8.4-10.5) 03/23/18 07:00 Magnesium 2.3 mg/dL (1.7-2.2) H 03/22/18 19:12 Total Bilirubin 0.7 mg/dL (0.2-1.3) 03/23/18 07:00 AST 29 U/L (17-59) 03/23/18 07:00 ALT 33 U/L (7-56) 03/23/18 07:00 Alkaline Phosphatase 60 U/L (38-126) 03/23/18 07:00 Total Protein 6.2 g/dL (5.8-8.3) 03/23/18 07:00 Albumin 3.7 g/dL (3.0-4.8) 03/23/18 07:00 Globulin 2.5 gm/dL 03/23/18 07:00 Albumin/Globulin Ratio 1.5 (1.1-1.8) 03/23/18 07:00 Alcohol, Quantitative < 10 mg/dL (0-10) 03/22/18 19:12 - Hospital Course Hospital Course: PGY1 Discharge Summary and Hospital Course for Dr. Em Marks This is a 63-year-old male with a past medical history significant for unspecified seizure disorder, HTN, CAD status-post stents, and previous history of alcohol abuse who presented 03/22 with breakthrough seizures on two anti seizure medications. Patient was admitted for observation and further evaluation. Please see chart for complete summary and details. CT of head without contrast was obtained 03/22 and revealed no intracranial abnormalities. EKG showed normal sinus rhythm with prolonged QTc. Chest X-Ray was obtained and revealed showed cardiomegaly with no active disease (please see complete report for details.) Comprehensive Metabolic Panel revealed Acute Kidney Injury. Patient was treated with IV fluids (NS @100cc/hr). Neurology was consulted and recommended checking Keppra levels, and that the Patient can follow-up with his Neurologist as an out-patient. Ativan 2mg Q4H PRN for seizure activity. Fall and seizure precautions were placed. Neurochecks were performed every 4 hours. The Patient's home meds were continued. The following day, the HALI resolved, and the patient was no longer having bouts of active seizures. Patient stated he felt well, and wanted to go home. Patient was seen and assessed at bedside. Patient denies any complaints but reports that he is upset that he won't be able to cook for his family on . Patient denies any complaints at this time including fevers, chills, headache, chest pain, SOB, abdominal pain, N/V/D/C, changes in urine output, skin changes or any numbness/tingling/weakness of any extremity. Patient was hemodynamically stable and medically optimized for discharge to home. All Medical Consultants agreed. Patient was instructed to follow up with Dr. Arellano (Neurologist) within 3-5 days of being discharged from the hospital. Patient to continue all other medications as prescribed to him. Patient was encouraged to continue with complete cessation of alcohol. Patient given written and verbal instructions. All instructions explained to the patient in detail. Patient both understand and agree to all instructions. Please see full chart for more detail. Discharge Instructions Provided to Patient Please follow up with your primary care doctor within 3-5 days of being di scharged from the hospital. Please discuss any medical issues addressed during your admission. Please follow up with your neurologist, Dr. Arellano, within 3-5 days of being discharged from the hospital to check Keppra levels. Please discuss your breakthrough seizure and any medical issues addressed during your admission. Information regarding a Ketogenic Diet has been provided in this paperwork as discussed during your admission. No changes have been made to your medications at this time so please continue them at their current dosages. Please take all medications as prescribed. Should your symptoms return, please seek emergency medical attention immediately. Patient seen and case discussed in detail with Dr. Em Griffin PGY1 Discharge Exam - Additional Findings Additional findings: - Constitutional Appears: Non-toxic, No Acute Distress - Head Exam Head Exam: ATRAUMATIC, NORMOCEPHALIC - Eye Exam Eye Exam: EOMI, Normal appearance, PERRL Pupil Exam: NORMAL ACCOMODATION - ENT Exam ENT Exam: Mucous Membranes Moist - Neck Exam Neck Exam: Full ROM, Normal Inspection. absent: Lymphadenopathy, Meningismus, Tenderness, Thyromegaly - Respiratory Exam Respiratory Exam: Clear to Ausculation Bilateral, NORMAL BREATHING PATTERN. absent: Accessory Muscle Use, Rales, Rhonchi, Wheezes, Respiratory Distress - Cardiovascular Exam Cardiovascular Exam: REGULAR RHYTHM, RRR, +S1, +S2 - GI/Abdominal Exam GI & Abdominal Exam: Soft, Normal Bowel Sounds. absent: Tenderness - Extremities Exam Extremities Exam: absent: Calf Tenderness, Pedal Edema - Back Exam Back Exam: NORMAL INSPECTION - Neurological Exam Neurological Exam: Alert, Awake, Oriented x3 - Psychiatric Exam Psychiatric exam: Normal Affect, Normal Mood - Skin Skin Exam: Dry, Intact, Normal Color, Warm Discharge Plan - Follow Up Plan Condition: FAIR Disposition: HOME/ ROUTINE Instructions: Seizures, Adult (DC), Ketogenic Diet, Pneumococcal Polysaccharide Vaccine (23-Valent), Flu Vaccine, Renal Failure Diet (DC) Additional Instructions: Please follow up with your primary care doctor within 3-5 days of being discharged from the hospital. Please discuss any medical issues addressed during your admission. Please follow up with your neurologist, Dr. Arellano, within 3-5 days of being discharged from the hospital in order to check Keppra levels. Please discuss your breakthrough seizure and any medical issues addressed during your admission. Information regarding a Ketogenic Diet has been provided in this paperwork as discussed during your admission. No changes have been made to your medications at this time so please continue them at their current dosages. Please take all medications as prescribed. Should your symptoms return, please seek emergency medical attention immediately. Referrals: Edwin Arellano MD [Staff Provider] - Graeme Mustafa MD [Staff Provider] - <Hemalatha Marks - Last Filed: 03/27/18 16:35> Provider - Provider Date of Admission: 03/22/18 20:48 Attending physician: Hemalatha Marks DO Hospital Course - Lab Results Lab Results: Most Recent Lab Values WBC 6.0 10^3/uL (4.5-11.0) 03/23/18 07:00 RBC 4.18 10^6/uL (3.5-6.1) 03/23/18 07:00 Hgb 13.0 g/dL (14.0-18.0) L D 03/23/18 07:00 Hct 38.1 % (42.0-52.0) L 03/23/18 07:00 MCV 91.1 fl (80.0-105.0) 03/23/18 07:00 MCH 31.1 pg (25.0-35.0) 03/23/18 07:00 MCHC 34.1 g/dl (31.0-37.0) 03/23/18 07:00 RDW 12.6 % (11.5-14.5) 03/23/18 07:00 Plt Count 149 10^3/uL (120.0-450.0) 03/23/18 07:00 MPV 10.7 fl (7.0-11.0) 03/23/18 07:00 Gran % 59.9 % (50.0-68.0) 03/23/18 07:00 Lymph % (Auto) 27.8 % (22.0-35.0) 03/23/18 07:00 Overton % (Auto) 8.9 % (1.0-6.0) H 03/23/18 07:00 Eos % (Auto) 3.2 % (1.5-5.0) 03/23/18 07:00 Baso % (Auto) 0.2 % (0.0-3.0) 03/23/18 07:00 Gran # 3.58 (1.4-6.5) 03/23/18 07:00 Lymph # (Auto) 1.7 (1.2-3.4) 03/23/18 07:00 Overton # (Auto) 0.5 (0.1-0.6) 03/23/18 07:00 Eos # (Auto) 0.2 (0.0-0.7) 03/23/18 07:00 Baso # (Auto) 0.01 K/mm3 (0.0-2.0) 03/23/18 07:00 Sodium 140 mmol/L (132-148) 03/23/18 07:00 Potassium 4.1 mmol/L (3.6-5.0) 03/23/18 07:00 Chloride 112 mmol/L (98-107) H 03/23/18 07:00 Carbon Dioxide 22 mmol/L (21-33) 03/23/18 07:00 Anion Gap 10 (10-20) 03/23/18 07:00 BUN 18 mg/dL (7-21) 03/23/18 07:00 Creatinine 1.4 mg/dl (0.8-1.5) 03/23/18 07:00 Est GFR ( Amer) > 60 03/23/18 07:00 Est GFR (Non-Af Amer) 52 03/23/18 07:00 Random Glucose 100 mg/dL (70-110) 03/23/18 07:00 Calcium 8.6 mg/dL (8.4-10.5) 03/23/18 07:00 Magnesium 2.3 mg/dL (1.7-2.2) H 03/22/18 19:12 Total Bilirubin 0.7 mg/dL (0.2-1.3) 03/23/18 07:00 AST 29 U/L (17-59) 03/23/18 07:00 ALT 33 U/L (7-56) 03/23/18 07:00 Alkaline Phosphatase 60 U/L (38-126) 03/23/18 07:00 Total Protein 6.2 g/dL (5.8-8.3) 03/23/18 07:00 Albumin 3.7 g/dL (3.0-4.8) 03/23/18 07:00 Globulin 2.5 gm/dL 03/23/18 07:00 Albumin/Globulin Ratio 1.5 (1.1-1.8) 03/23/18 07:00 Levetiracetam 23.6 mcg/mL 03/23/18 07:20 Alcohol, Quantitative < 10 mg/dL (0-10) 03/22/18 19:12 Attending/Attestation - Attestation I have personally seen and examined this patient.: Yes I have fully participated in the care of the patient.: Yes I have reviewed all pertinent clinical information, including history, physical exam and plan: Yes Notes (Text): Patient seen and examined by me with resident at 9:40AM on 03/23/18. Case including discharge plan discussed with resident. Agree with above with following additions/corrections. Patient is a 63-year-old male with past medical history significant for hypertension, coronary artery disease status post placement, alcohol abuse, and seizures that presented to the emergency room with a witnessed seizure at home. Please see H&P for full details. Patient was admitted with seizure, hypertension, and HALI. Patient had breakthrough seizure. Neurology was consulted. Head CT per neurologist showed no intracranial findings. Per neurologist, patient currently on good dose of Keppra, patient to follow up with Dr. Arellano (patients neurologist) for further management. Patient also to follow up for results of Keppra levels with Dr. Arellano. Patient to continue his home Keppra and Zonegran. Patient was cleared for discharge by neurology. HALI resolved. Patient to continue home Bystolic for hypertension. Patient to continue ASA and Bystolic for history of CAD. Patient was feeling much better and was asking to go home. Patient was cleared for discharge by neurology and was discharged home. On day of discharge, patient stated he was feeling much better and wanted to go home. No more seizure activity. No chest pain. No shortness of breath or palpitations. No nausea, vomiting, or abdominal pain. No headaches or dizziness. No lightheadedness. No change in vision. No dysuria. No fevers or chills. No diarrhea or constipation. Physical exam: General: Awake and alert lying in bed in no acute distress HEENT: Normocephalic, atraumatic. Extraocular muscles intact, pupils equal and reactive, no scleral icterus. Oropharynx is pink and moist. Neck is supple. Cardiovascular: Regular rhythm. Normal S1 and S2. No murmurs, rubs, or gallops appreciated Pulmonary: Normal respiratory effort. No rhonchi, rales, or wheezing appreciated. Gastrointestinal: Soft, nondistended. Nontender. Positive bowel sounds all 4 quadrants. No guarding. Musculoskeletal: Moves all extremities. No calf tenderness. No CVA tenderness. No edema appreciated Central nervous system: AAO x3, CN 2-12 grossly intact. Dermatologic: Skin warm and dry. Please see chart for full details. Follow up instructions: Patient to follow up with primary care doctor within 3-5 days. Patient to follow up with neurologist within 3-5 days. Patient to continue home medications. All instructions explained to the patient in detail. Patient both understands and agrees to all instructions. Written instructions also given. Time spent in discharging the patient including chart review, medication reconciliation, discussion with the patient, medical assistant cardiology, consultants, and nursing staff was 35 minutes.
--- NOTE | 2018-03-24 07:56 | CARD ---
APPROVED REPORT Date of service: 03/22/2018 EKG Measurement Heart [id number] <Conclusion> Normal sinus rhythm RBBB Possible IMI, old No change
== END 2018-03-23 20:13 | disposition home or self-care (01) ==
LOC: ED 18:59 → ERH 20:48 → 5RSO 22:51
PROVIDERS: ADMIT Hospitalist; ATTEND Hospitalist
DX: G40.89 Other seizures (principal); I11.9 Hypertensive heart disease without heart failure; N17.9 Acute kidney failure, unspecified; E87.2 Acidosis; F10.10 Alcohol abuse, uncomplicated; G93.89 Other specified disorders of brain; I25.10 Atherosclerotic heart disease of native coronary artery without angina pectoris; Z86.73 Personal history of transient ischemic attack (TIA), and cerebral infarction without residual deficits; Z87.891 Personal history of nicotine dependence; Z95.5 Presence of coronary angioplasty implant and graft
CPT/HCPCS: 36415; 70450; 71045; 80053; 80177; 83735; 85025; 93005; 96374; 99285; G0378; G0480; J2060; J7030